=== PATIENT | male | born 1945 | race African-American/Black ===

== ENCOUNTER → 2017-10-05 | Outpatient (CLI) | payer MEDICARE, OTHER ==
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
== END | disposition home or self-care (01) ==
LOC: RAD 09:56
PROVIDERS: ATTEND Orthopaedic Surgery Sports Medicine
DX: M79.642 Pain in left hand (principal)
CPT/HCPCS: 73130

== ENCOUNTER → 2018-07-21 | Outpatient (CLI) | payer MEDICARE ==
--- NOTE | 2018-07-21 08:51 | RAD ---
Bilateral renal ultrasound, 07/21/2018: HISTORY: Chronic kidney disease The right kidney measures 8.3 cm in length while the left kidney measures 10.6 cm. There is no evidence of hydronephrosis or a renal mass. The renal parenchymal echogenicity is within normal limits. There is a suggestion of a small 3 cm hypoechoic nodule in the right suprarenal region. Limited views of urinary bladder demonstrate a moderate impression upon its posterior wall compatible with prostatic enlargement. The bladder palmer are mildly thickened, however, this is likely due to lack of distention of the bladder. A post voiding view demonstrated good bladder emptying. IMPRESSION: 1. Slightly small right kidney. 2 Questionable right suprarenal mass. CT scanning is suggested for further evaluation. 3. Mild prostatic enlargement. Electronically signed by: David Briones MD (07/21/2018 8:48 AM) [facility]
== END | disposition home or self-care (01) ==
LOC: US 06:31
PROVIDERS: ATTEND Internal Medicine
DX: N40.0 Benign prostatic hyperplasia without lower urinary tract symptoms (principal); N18.9 Chronic kidney disease, unspecified
CPT/HCPCS: 76770